=== PATIENT | female | born 1995 | race Caucasian/White ===

== ENCOUNTER 2022-09-30 03:40 | Inpatient (IN) ==
[2022-09-30] MEDS ORDERED: LIDOCAINE 1% LOCAL 20 ML VIAL INFIL PRN (04:37)
[2022-09-30] MEDS ORDERED: SODIUM CHLORIDE 0.9% 250 ML IV PRN (04:50)
[2022-09-30 05:02] LABS: Hematocrit (blood only) 36.6 % (34.1-44.9); Hemoglobin 12.3 g/dl (12.0-16.0); Mean Corpuscular Hemoglobin 28.5 pg (25.0-34.0); Mean Corpuscular Hgb Conc 33.6 g/dL (32.0-36.0); Mean Corpuscular Volume 84.7 fL (80.0-100.0); Mean Platelet Volume 9.8 fL (9.4-12.3); Platelet Count 245 K/uL (130-400); RDW Coefficient of Variation 13.7 % (11.5-14.5); RDW Standard Deviation 42.1 fL (36.4-46.3); Red Blood Count 4.32 M/uL (3.93-5.22); White Blood Count 11.25 K/ul (4.8-10.8)
--- NOTE | 2022-09-30 05:02 | Labor Progress Brief Note ---
Date of Service September 30, 2022 Assessment & Plan (1) premature rupture of membranes (PPROM) delivered, current hos pitalization: Plan: at 36 + week PPROM- grossly raptured at 02;00 FHR;CAT1 Ctx; Minimal VE: 3/80/-2 bedside sono; VT + GBS, antibx satrted BTMZ IM series discussed Pitocin augmentation after 4 hrs of SROM if no adequate ctx Results & Data ([facility]) Vital Signs (Past 12 Hours) Vital Signs Temp Pulse Resp BP 09/30/22 04:04 37.0 C 117 H 18 142/98 H 09/30/22 04:38 109 H 143/92 H 09/30/22 04:28 108 H 140/96 09/30/22 04:18 111 H 140/98 09/30/22 04:09 113 H 142/98 H 09/30/22 04:10 109 H 144/100 H 09/30/22 03:58 117 H 150/102 H
[2022-09-30] MEDS: PENICILLIN GK 6 MU in DEXTROSE 5% 250 ML IV STA (05:04)
[2022-09-30] MEDS: LACTATED RINGER'S 1,000 ML IV PRN (05:04)
[2022-09-30 05:21] LABS: Bilirubin,Total 0.3 mg/dl (0.2-1.0); Calcium 8.9 mg/dl (8.5-10.1); Creatinine Clr Calc Pharmacy 227.5 ml/min; Est GFR (African American) 146.8 ml/min; Est GFR (Non-African American) 126.7 ml/min; Globulin 3.2 gm/dl (2.5-4.0); Potassium 4.1 mmol/L (3.5-5.1); Total Protein 6.3 gm/dl (6.0-8.3)
[2022-09-30] MEDS: OXYTOCIN 30 UNITS/NSS 30 UNITS/500 ML BAG IV PRN ×2 (06:25→16:25)
[2022-09-30] MEDS: BETAMETH SOD PHOS/ACETATE IA 6 MG/ML IM STA (07:02)
[2022-09-30] MEDS: BETAMETH SOD PHOS/ACETATE IA 6 MG/ML ONE (07:57)
[2022-09-30] MEDS: PENICILLIN GK 3 MU in DEXTROSE 5% 100 ML IV PRN (09:14)
--- NOTE | 2022-09-30 10:49 | Labor Progress Brief Note ---
Date of Service September 30, 2022 Assessment & Plan (1) premature rupture of membranes (PPROM) delivered, current hos pitalization: Plan: Pt doing wel FHR; CAT1 ctx ; Poor tracing Pit 6mu VE; /-2 IUPC placed w/o difficulty Ctx are now 2-3min pt is agreeable to epidural Admission and Anticipated Discharge Date Admission Date: September 30, 2022 Results & Data ([facility]) Vital Signs (Past 12 Hours) Vital Signs Temp Pulse Resp BP Pulse Ox 09/30/22 07:00 36.6 C 18 09/30/22 04:04 37.0 C 117 H 18 142/98 H 09/30/22 10:43 95 H 100 09/30/22 10:38 100 H 100 09/30/22 10:33 91 H 99 09/30/22 10:14 96 H 144/91 H 09/30/22 09:59 90 139/107 H 09/30/22 09:46 86 130/65 09/30/22 09:23 93 H 135/71 09/30/22 08:59 97 H 148/89 H 09/30/22 08:53 18 09/30/22 08:53 36.4 C L 18 09/30/22 08:46 94 H 145/88 H 09/30/22 08:44 86 168/96 H 09/30/22 08:29 81 177/102 H 09/30/22 08:14 86 139/74 09/30/22 08:01 86 134/73 09/30/22 07:45 94 H 123/81 09/30/22 07:29 92 H 138/94 09/30/22 07:15 98 H 135/88 09/30/22 07:03 110 H 155/95 H 09/30/22 07:00 110 H 168/110 H 09/30/22 06:37 105 H 155/105 H 09/30/22 06:27 104 H 151/103 H 09/30/22 04:38 109 H 143/92 H 09/30/22 04:28 108 H 140/96 09/30/22 04:18 111 H 140/98 09/30/22 04:09 113 H 142/98 H 09/30/22 04:10 109 H 144/100 H 09/30/22 03:58 117 H 150/102 H
[2022-09-30] MEDS: BUPIVACAINE 0.25% PF 30 ML VIAL ONE (11:11)
[2022-09-30] MEDS: fentaNYL 2MCG/ML ROPIVACAINE 1.25MG/ML 100 ML BAG EPI ONE (11:13)
--- NOTE | 2022-09-30 11:17 | Anesthesiology Consultation ---
Date of Service September 30, 2022 Assessment & Plan Chart Review Chart Review: Acceptable Risk for Labor Epidural Consults Requested none History Height/Weight Height: 5 ft 11 in Weight: 145.15 kg Allergies Allergy/AdvReac Type Severity Reaction Status Date / Time No Known Allergies Allergy Unverified 09/30/22 04:24 Medications Home Medications Medication Instructions Recorded Confirmed Last Taken aspirin 81 mg chewable tablet 81 mg PO DAILY 09/30/22 09/30/22 09/29/22 vit no.95-ferrous 1 tab PO DAILY 09/30/22 09/30/22 09/29/22 fumarate 28 mg-folic acid 800 mcg tablet () Active Medications Generic Name Dose Route Start Last Admin Trade Name Freq PRN Reason Stop Dose Admin Lactated Ringer's 1,000 mls @ 125 mls/hr 09/30/22 04:37 09/30/22 11:06 Lr IV 10/02/22 04:36 125 mls/hr .Q8H PRN Administration L&D Protocol Protocol Penicillin G Potassium 3 mu/ 106 mls @ 100 mls/hr 09/30/22 07:37 09/30/22 09:14 Dextrose IV 10/10/22 07:36 100 mls/hr Q4H PRN Administration GBS(+) Until Delivery Oxytocin 30 units in 500 mls @ 6 mls/hr 09/30/22 05:02 09/30/22 08:08 Pitocin IV 10/02/22 05:01 0.36 units/hr .Q24H PRN 6 mls/hr Labor Induction/Augmentation Titration Protocol 0.36 UNITS/HR Past Surgical History Surgical History (Updated 09/30/22 @ 04:24 by Kathya Mckenna) [place] teeth extracted Social History Smoking Status: Never smoker Hx Alcohol Use: No Hx Substance Use: No Physical Exam Vital Signs Last Vital Signs Temp 36.6 C 09/30/22 10:47 Pulse 101 H 09/30/22 11:16 Resp 18 09/30/22 10:47 BP 133/80 09/30/22 11:16 Pulse Ox 97 09/30/22 11:13 Testing Laboratory Results 09/30/22 04:52 09/30/22 04:52 Blood Type A Positive 09/30/22 04:52 Antibody Screen NEGATIVE 09/30/22 04:52
[2022-09-30] MEDS ORDERED: ePHEDrine sulfate 50 MG/ML AMP IV PRN (11:18)
[2022-09-30] MEDS ORDERED: NALOXONE HCL 1 MG in SODIUM CHLORIDE 0.9% 1,000 ML IV PRN (11:18)
[2022-09-30] MEDS ORDERED: diphenhydrAMINE 50 MG/ML VIAL IV PRN (11:18)
[2022-09-30] MEDS ORDERED: fentaNYL 2MCG/ML ROPIVACAINE 1.25MG/ML 100 ML BAG EPI PRN (11:18)
[2022-09-30] MEDS ORDERED: NALOXONE HCL 0.4 MG/1 ML VIAL/CARP IV PRN (11:18)
[2022-09-30] MEDS ORDERED: NALBUPHINE HCL INJ 10 MG/ML AMP IV PRN (11:18)
[2022-09-30] MEDS ORDERED: ONDANSETRON INJ 2 MG/ML 2 ML VIAL IV PRN (11:18)
[2022-09-30] MEDS: LIDOCAINE 2%/EPINEPHRINE 1:200,000 20 ML PF ONE (11:36)
[2022-09-30] MEDS: fentaNYL citrate PF 100 MCG/2 ML VIAL ONE (11:36)
[2022-09-30] MEDS: SODIUM CHLORIDE 0.9% PF INJ 10 ML VIAL ONE (11:36)
[2022-09-30 14:50] VITALS: RESP 18
[2022-09-30] MEDS: miSOPROStoL 200 MCG TAB PR ONE (16:03)
[2022-09-30] MEDS: METHYLERGONOVINE MALEATE 0.2 MG/ML AMP ONE (16:04)
[2022-09-30] MEDS ORDERED: ACETAMINOPHEN 325 MG TAB PO PRN (16:09)
[2022-09-30] MEDS ORDERED: OXYTOCIN 30 UNITS/NSS 30 UNITS/500 ML BAG IV PRN (16:09)
[2022-09-30] MEDS ORDERED: HYDROCORTISONE ACETATE 25 MG SUPP PR PRN (16:09)
--- NOTE | 2022-09-30 16:19 | Delivery Summary ---
DATE OF SERVICE: 09/30/2022 DELIVERY NOTE: The patient delivered a live in left occiput anterior presentation. There was no nuchal cord. Infant was delivered and placed on mother's abdomen. Delayed cord clamp was perfor med. Placenta spontaneously delivered. Inspection of the placenta shows a normal placenta with 3-ve ssel cord. Inspection of the perineum shows a second-degree midline laceration, which was repaired with 2-0 Vicr yl in layers. Rectal exam post-repair showed good sphincter tone. Estimated blood loss was 450 mL. The patient is doing well. Good hemostasis. The patient is in [place] very. Job ID: [id number]
[2022-09-30] MEDS: ePHEDrine sulfate 50 MG/ML AMP ONE (16:24)
[2022-09-30] MEDS: METHYLERGONOVINE MALEATE 0.2 MG/ML AMP IM ONE (17:05)
[2022-09-30] MEDS: miSOPROStoL 200 MCG TAB ONE (17:05)
[2022-09-30] MEDS ORDERED: Nursing to Pharmacy Communication SCH (17:15)
--- NOTE | 2022-09-30 18:20 | Anesthesia Procedure Note ---
Date of Service September 30, 2022 Anesthesia Post Epidural Note Vital Signs Vital Signs: Temp Pulse Resp BP Pulse Ox 36.6 C 99 H 18 127/70 97 09/30/22 16:10 09/30/22 18:15 09/30/22 16:10 09/30/22 18:15 09/30/22 16:03 Pain Intensity Lower Abdomen: Pain Intensity: 0 Notes Mental Status: alert / awake / arousable Nausea / Vomiting: adequately controlled Pain: adequately controlled Airway Patency, RR, SpO2: stable & adequate BP & HR: stable & adequate Hydration State: stable & adequate Neuraxial Anesthesia: was administered and sensory block is resolving Anesthetic Complications: no major complications apparent and Pt Satisfied with anesthetic care Epidural: Removed without complications and With tip intact
[2022-09-30] MEDS: IBUPROFEN 600 MG TAB PO PRN (18:34)
[2022-09-30] MEDS: DIPHTHER/TETAN/PERTUS Vaccine (Tdap, Adol/Adult) 0.5mL IM ONE (18:46)
[2022-09-30] MEDS: DOCUSATE SODIUM 100 MG CAP PO SCH (22:31)
[2022-09-30] MEDS: BENZOCAINE 20% SPRY 85 APPLN/85 GM CAN EXT PRN (22:31)
[2022-10-01] MEDS ORDERED: BETAMETH SOD PHOS/ACETATE IA 6 MG/ML IM SCH (04:45)
[2022-10-01 06:33] LABS: Hematocrit (blood only) 33.7 % (34.1-44.9); Hemoglobin 11.1 g/dl (12.0-16.0); Mean Corpuscular Hemoglobin 28.3 pg (25.0-34.0); Mean Corpuscular Hgb Conc 32.9 g/dL (32.0-36.0); Mean Platelet Volume 9.7 fL (9.4-12.3); Platelet Count 227 K/uL (130-400); RDW Standard Deviation 43.1 fL (36.4-46.3); Red Blood Count 3.92 M/uL (3.93-5.22); White Blood Count 12.47 K/ul (4.8-10.8)
[2022-10-01] MEDS: PRENATAL VITAMIN 1 TAB PO SCH (07:50)
--- NOTE | 2022-10-01 09:39 | Obstetrical Progress Note ---
Date of Service October 01, 2022 Assessment & Plan Admission and Anticipated Discharge Date Admission Date: September 30, 2022 Subjective Patient is seen and examined. She feels well, no complaints. Ambulating without dizziness Voiding without difficulty Tolerating regular diet with out N&V Bleeding is minimal No fever/ chills/ CP/ SOB/ N&V/ Leg pain Breast feeding without problems Vital Signs Temp Pulse Resp BP Pulse Ox O2 Del Method 10/01/22 08:00 36.4 C L 82 18 128/87 Room Air 10/01/22 03:00 36.5 C 87 18 134/87 97 Room Air 09/30/22 23:28 36.8 C 100 H 18 136/86 97 Room Air Lab Results 09/30/22 09/30/22 09/30/22 Range/Units 04:52 04:52 04:52 WBC 11.25 H (4.8-10.8) K/ul RBC 4.32 (3.93-5.22) M/uL Hgb 12.3 (12.0-16.0) g/dl Hct 36.6 (34.1-44.9) % MCV 84.7 (80.0-100.0) fL MCH 28.5 (25.0-34.0) pg MCHC 33.6 (32.0-36.0) g/dL RDW Std Deviation 42.1 (36.4-46.3) fL RDW Coeff of Delfina 13.7 (11.5-14.5) % Plt Count 245 (130-400) K/uL MPV 9.8 (9.4-12.3) fL Sodium 137 (136-145) mmol/L Potassium 4.1 (3.5-5.1) mmol/L Chloride 106 (98-107) mmol/L Carbon Dioxide 22 (21-32) mmol/L Anion Gap 9 (3-11) BUN 12 (6-23) mg/dl Creatinine 0.60 (0.6-1.2) mg/dl Est Cr Clr Drug Dosing 227.5 ml/min Est GFR ( Amer) 146.8 ml/min Est GFR (Non-Af Amer) 126.7 ml/min BUN/Creatinine Ratio 20.0 (10-20) Glucose 95 (70-99(Fasting)) mg/dl Calcium 8.9 (8.5-10.1) mg/dl Total Bilirubin 0.3 (0.2-1.0) mg/dl AST 14 (13-39) U/L ALT 13 (7-52) U/L Alkaline Phosphatase 123 H (34-104) U/L Total Protein 6.3 (6.0-8.3) gm/dl Albumin 3.1 L (3.4-5.0) gm/dl Globulin 3.2 (2.5-4.0) gm/dl Albumin/Globulin Ratio 1.0 (0.9-2) SARS-CoV-2, RNA, NAAT (NEGATIVE) Blood Type A Positive Antibody Screen NEGATIVE Crossmatch See Detail 09/30/22 10/01/22 Range/Units 04:52 06:13 WBC 12.47 H (4.8-10.8) K/ul RBC 3.92 L (3.93-5.22) M/uL Hgb 11.1 L (12.0-16.0) g/dl Hct 33.7 L (34.1-44.9) % MCV 86.0 (80.0-100.0) fL MCH 28.3 (25.0-34.0) pg MCHC 32.9 (32.0-36.0) g/dL RDW Std Deviation 43.1 (36.4-46.3) fL RDW Coeff of Delfina 14.0 (11.5-14.5) % Plt Count 227 (130-400) K/uL MPV 9.7 (9.4-12.3) fL Sodium (136-145) mmol/L Potassium (3.5-5.1) mmol/L Chloride (98-107) mmol/L Carbon Dioxide (21-32) mmol/L Anion Gap (3-11) BUN (6-23) mg/dl Creatinine (0.6-1.2) mg/dl Est Cr Clr Drug Dosing ml/min Est GFR ( Amer) ml/min Est GFR (Non-Af Amer) ml/min BUN/Creatinine Ratio (10-20) Glucose (70-99(Fasting)) mg/dl Calcium (8.5-10.1) mg/dl Total Bilirubin (0.2-1.0) mg/dl AST (13-39) U/L ALT (7-52) U/L Alkaline Phosphatase (34-104) U/L Total Protein (6.0-8.3) gm/dl Albumin (3.4-5.0) gm/dl Globulin (2.5-4.0) gm/dl Albumin/Globulin Ratio (0.9-2) SARS-CoV-2, RNA, NAAT NEGATIVE (NEGATIVE) Blood Type Antibody Screen Crossmatch PE: General: Alert, orientedx3, NAD Abd: soft, NT, fundus firm, below Umbilicus Perineum intact, Lochia rubra minimal Ext; NT, no edema AP: 26 yo s/p , ppd# 1 VSS Afebrile doing well Continue routine care All questions were answered D/C home tomorrow Results & Data ([facility]) Vital Signs (Past 12 Hours) Vital Signs Temp Pulse Resp BP Pulse Ox O2 Del Method 10/01/22 08:00 36.4 C L 82 18 128/87 Room Air 10/01/22 03:00 36.5 C 87 18 134/87 97 Room Air 09/30/22 23:28 36.8 C 100 H 18 136/86 97 Room Air
[2022-10-01] MEDS: bisacodyL 5 MG TABEC PO SCH (20:05)
[2022-10-02 07:08] LABS: Hematocrit (blood only) 32.2 % (34.1-44.9); Hemoglobin 10.6 g/dl (12.0-16.0)
[2022-10-02] MEDS ORDERED: bisacodyL 10 MG SUPP PR PRN (08:00)
[2022-10-02 09:23] VITALS: BP 122/83; PULSE 88; TEMP 98.1; O2SAT 98
--- NOTE | 2022-10-02 13:09 | Obstetrical Progress Note ---
Date of Service October 02, 2022 Assessment & Plan (1) Normal course: pt doing well No complaints disch home with instructions Subjective Ambulation: ambulating normally Voiding: no voiding problems Passing Gas:: Yes Diet Tolerance:: regular diet Lochia:: Small Feeding Type:: breast feeding Review of Systems All systems reviewed & are unremarkable except as noted in HPI & below Physical Exam Constitutional WD/WN, vitals as above well developed and well nourished Eyes PERRL, conjunctivae normal, anicteric sclerae Neck trachea midline, no thyromegaly Respiratory normal respiratory effort, lungs clear to auscultation Auscultation: no crackles, no rales and no wheezes Cardiovascular RRR, no murmur, no edema Gastrointestinal (Abdomen) normal bowel sounds, soft, nontender, no hepatosplenomegaly Uterus is below umbilicus Musculoskeletal no cyanosis or clubbing, extremities motor strength 5/5 Skin no rashes, warm and dry Neurologic patellar DTR's 2+ bilat, sensation intact Psychiatric A+Ox3, euthymic affect Genitourinary normal external appearance Results & Data ([facility]) Vital Signs (Past 12 Hours) Vital Signs Temp Pulse Resp BP Pulse Ox O2 Del Method 10/02/22 07:30 36.7 C 88 18 122/83 98 Room Air
== END 2022-10-02 14:41 | disposition home or self-care (01) ==
LOC: OPB 03:40 → 4S1 03:51 → 4E2 20:27

== ENCOUNTER 2025-07-19 07:41 | Inpatient (IN) ==
[2025-07-19] MEDS ORDERED: CALCIUM CARBONATE 500 MG CHEWABLE TAB PO PRN (08:14)
[2025-07-19] MEDS: LACTATED RINGER'S 1,000 ML IV PRN (08:20)
--- NOTE | 2025-07-19 08:41 | History & Physical Report ---
Date of Service July 19, 2025 Assessment & Plan (1) Active labor at term: Plan: 29-year-old at 39 weeks and 6 days of gestation presenting in active labor requesting epidural for pain, Initial blood pressure slight elevated, asymptomatic, will add labs, heart rate reassuring, GBS positive, Plan to admit, labs, start IV penicillin, epidural for pain, continue to monitor, All questions were answered. (2) Positive GBS test: (3) Obesity affecting in third trimester, antepartum: Admission and Anticipated Discharge Date Admission Date: July 19, 2025 History of Present Illness Primary Care Provider: Iam Arciniega MD -0-0-1 at 39 weeks and 6 days of gestation who woke up this morning around 5 AM with contractions, they have been every 8 to 10 minutes and they got more closer and regular. She presented to labor and delivery in active labor and ask ing for epidural. She rates her pain 6 out of 10 while smiling. She denies leakage of fluid or vaginal bleeding. She reports good movements. She has no other complaints. Her has been complicated by, 1. Class III obesity, growth was at 66 percentile on June 24, 2. GBS positive for 3. History of insulin resistance, she was on metformin before and stopped with the knowledge of . 4. History of labor and delivery at 36 weeks and 4 days of gestation last time, EFW was larger for gestational age Allergies Allergy/AdvReac Type Severity Reaction Status Date / Time No Known Allergies Allergy Unverified 09/30/22 04:24 Home Medications Medication Instructions Recorded Confirmed Type aspirin 81 mg chewable tablet 81 mg PO DAILY 09/30/22 07/19/25 History vit no.95-ferrous 1 tab PO DAILY 09/30/22 07/19/25 History fumarate 28 mg-folic acid 800 mcg tablet () Patient History Surgical History [place] teeth extracted Social History Smoking Status: Never smoker Second Hand Exposure: No; Hx Alcohol Use: No Hx Substance Use: No Preferred Language: Irish Communication Ability: Effective Colon And Rectal Surgeon Required: No Beliefs That Will Affect Care: None marital status: Current Living Situation: Family Other Information That Helps Us Care for You: No Feels Safe at Home: Yes Safety Concerns: Feels Safe At This Time Assistive Devices: Contacts and Glasses [employer] History no history of STDs, no history of chlamydia, gonorrhea, herpes Review of Systems as per Subjective / HPI Physical Exam Constitutional: WD/WN, vitals as above well developed, well nourished and comfortable Genitourinary: normal external appearance OB Exam Abdomen: + vertex ( confirmed with ultrasound) Manual OB Exam: + cervical dilation 6 cm, + cervical effacement 80% and + station -1 ( bulging bag) OB Exam Monitor Tracing: + category I and + category II bedside ultrasound done by myself confirmed vertex presentation, heart rate, breathing and movements Results & Data Vital Signs (Past 12 Hours) Vital Signs Temp Pulse Resp BP 07/19/25 08:04 98 H 141/95 H 07/19/25 07:58 36.6 C 16 (3) Obesity affecting in third trimester, antepartum Obesity type affecting : other obesity Qualified Code(s): O99.213 - Obesity complicating , third trimester; E66.89 - Other obesity not elsewhere classified
[2025-07-19] MEDS: PENICILLIN GK 6 MU in DEXTROSE 5% 250 ML IV STA (08:53)
[2025-07-19 09:18] LABS: Hematocrit (blood only) 38.2 % (37.0-47.0); Hemoglobin 13.0 g/dl (12.0-16.0); Mean Corpuscular Hemoglobin 28.9 pg (25.0-34.0); Mean Corpuscular Volume 84.9 fL (80.0-100.0); Platelet Count 282 K/uL (130-400); RDW Standard Deviation 42.4 fL (36.4-46.3); Red Blood Count 4.50 M/uL (4.20-5.40); White Blood Count 10.11 K/ul (4.8-10.8)
[2025-07-19] MEDS ORDERED: SODIUM CHLORIDE 0.9% PF INJ 10 ML VIAL EPI PRN (09:18)
[2025-07-19] MEDS ORDERED: NALOXONE HCL 0.4 MG/1 ML VIAL/CARP IV PRN (09:18)
[2025-07-19] MEDS ORDERED: diphenhydrAMINE 50 MG/ML VIAL IV PRN (09:18)
[2025-07-19] MEDS ORDERED: ROPIVACAINE 0.5% PF 5 MG/ML 20 ML VIAL EPI PRN (09:18)
[2025-07-19] MEDS ORDERED: NALBUPHINE HCL INJ 10 MG/ML AMP IV PRN (09:18)
[2025-07-19] MEDS ORDERED: NALOXONE HCL 1 MG in SODIUM CHLORIDE 0.9% 1,000 ML IV PRN (09:18)
[2025-07-19] MEDS ORDERED: LIDOCAINE 2% MPF LOCAL 5 ML VIAL EPI PRN (09:18)
[2025-07-19 09:21] LABS: Albumin Level 3.3 gm/dl (3.4-5.0); Anion Gap 9.0 (3-11); Bilirubin,Total 0.3 mg/dl (0.2-1.0); Calcium 8.9 mg/dl (8.6-10.3); Carbon Dioxide 23.0 mmol/L (21-32); Chloride 105.0 mmol/L (98-107); Potassium 3.9 mmol/L (3.5-5.1); Sodium 137.0 mmol/L (136-145)
[2025-07-19 09:27] LABS: Alanine Aminotransferase 14.0 U/L (7-52); Albumin Globulin Ratio 1.0 (0.9-2); Alkaline Phosphatase 126.0 U/L (34-104); Blood Urea Nitrogen 10.0 mg/dl (6-23); Creatinine Clr Calc Pharmacy 226.7 ml/min; Globulin 3.4 gm/dl (2.5-4.0); Glucose 105.0 mg/dl (70-99(Fasting)); Total Protein 6.7 gm/dl (6.0-8.3)
--- NOTE | 2025-07-19 09:50 | Anesthesiology Consultation ---
Date of Service July 19, 2025 Assessment & Plan (1) Encounter for pre-operative examination: Chart Review Chart Review: Patient NOT seen in Pre Admission Testing and Acceptable Risk for Labor Epidural Consults Requested none History Height/Weight Height: 5 ft 10 in Weight: 141.521 kg Allergies Allergy/AdvReac Type Severity Reaction Status Date / Time No Known Allergies Allergy Unverified 09/30/22 04:24 Medications Home Medications Medication Instructions Recorded Confirmed Last Taken aspirin 81 mg chewable tablet 81 mg PO DAILY 09/30/22 07/19/25 07/17/25 vit no.95-ferrous 1 tab PO DAILY 09/30/22 07/19/25 07/17/25 fumarate 28 mg-folic acid 800 mcg tablet () Active Medications Generic Name Dose Route Start Last Admin Trade Name Freq PRN Reason Stop Dose Admin Lactated Ringer's 1,000 mls @ 150 mls/hr 07/19/25 08:14 07/19/25 09:19 Lr IV 07/21/25 08:13 150 mls/hr .[id number] PRN Administration L&D Protocol Protocol NPO Date Last Intake of Fluids: 07/19/25 Time Last Intake of Fluids: 09:00 Date Last Intake of Solids: 07/19/25 Time Last Intake of Solids: 07:00 Past Medical History Medical History (Updated 07/19/25 @ 09:50 by Diego Pickens MD) Encounter for pre-operative examination Obesity affecting in third trimester, antepartum Exercise / Class Metabolic Activity II 4-5 Yardwork/Stairs/Walk up hill Past Surgical History Surgical History [place] teeth extracted Past Anesthesia History No Hx of Anesthesia Complications and No Family Hx of Anesthesia Complications History of PONV No Hx of PONV and No Hx of Motion Sickness Social History Smoking Status: Never smoker Do You Dip or Chew Tobacco: No Hx Alcohol Use: No Hx Substance Use: No Physical Exam Vital Signs Last Vital Signs Temp 36.6 C 07/19/25 07:58 Pulse 92 H 07/19/25 09:15 Resp 16 07/19/25 07:58 BP 141/95 H 07/19/25 08:04 Pulse Ox 97 07/19/25 09:15 Testing Laboratory Results 07/19/25 08:39
[2025-07-19] MEDS: LIDOCAINE 2%/EPINEPHRINE 1:200,000 20 ML PF EPI STA (09:53)
[2025-07-19] MEDS: BUPIVACAINE 0.25% PF 30 ML VIAL EPI PRN (09:54)
[2025-07-19] MEDS: fentANYL 2 MCG/ML BUPIVacaine 0.125%-NSS 100ML BAG EPI PRN (10:02)
[2025-07-19] MEDS: ONDANSETRON INJ 2 MG/ML 2 ML VIAL IV PRN (10:42)
[2025-07-19] MEDS: BUPIVACAINE 0.25% PF 30 ML VIAL ONE (10:48)
[2025-07-19] MEDS: SODIUM CHLORIDE 0.9% PF INJ 10 ML VIAL ONE (10:48)
[2025-07-19] MEDS: LIDOCAINE 2%/EPINEPHRINE 1:200,000 20 ML PF ONE (10:48)
[2025-07-19] MEDS: BUPIVACAINE 0.25% PF 30 ML VIAL EPI STA (10:48)
[2025-07-19] MEDS: SODIUM CHLORIDE 0.9% PF INJ 10 ML VIAL EPI STA (10:48)
[2025-07-19] MEDS: fentANYL 2 MCG/ML BUPIVacaine 0.125%-NSS 100ML BAG ONE (10:48)
--- NOTE | 2025-07-19 11:16 | Obstetrical Progress Note ---
Date of Service July 19, 2025 Assessment & Plan Admission and Anticipated Discharge Date Admission Date: July 19, 2025 Subjective Patient has been comfortable, received epidural for pain 1st dose of PCN was completed FHR had been categ I Had short lasting 2 decels with spontaneous recovery VE: 7-8 cm/ 90%/-1, touched scalp and FHR had acceleration with moderate variability, head moved up, ballotable, amniotic bag intact Will continue to monitor and hold on AROM until 2nd dose of PCN would be started Results & Data Vital Signs (Past 12 Hours) Vital Signs Temp Pulse Resp BP Pulse Ox 07/19/25 11:11 83 71 L 07/19/25 11:10 80 100 07/19/25 11:05 78 99 07/19/25 11:04 78 111/63 07/19/25 11:00 73 98 07/19/25 10:55 100 07/19/25 10:55 88 07/19/25 10:55 97 H 87 L 07/19/25 10:50 79 99 07/19/25 10:49 96 H 116/65 07/19/25 10:45 88 97 07/19/25 10:40 97 07/19/25 10:40 76 07/19/25 10:40 73 103/56 L 07/19/25 10:35 100 07/19/25 10:35 83 07/19/25 10:35 81 110/57 L 07/19/25 10:30 87 100 07/19/25 10:25 111 H 98 07/19/25 10:24 96 H 107/55 L 07/19/25 10:20 108 H 99 07/19/25 10:19 105 H 109/53 L 07/19/25 10:15 106 H 99 07/19/25 10:14 103 H 109/55 L 07/19/25 10:10 100 H 100 07/19/25 10:08 114 H 108/57 L 07/19/25 10:05 100 07/19/25 10:05 110 H 07/19/25 10:05 104 H 109/55 L 07/19/25 10:03 106 H 123/58 L 07/19/25 10:01 103 H 127/60 07/19/25 10:00 100 H 98 07/19/25 09:55 106 H 98 07/19/25 09:50 93 H 99 07/19/25 09:47 99 H 142/89 H 07/19/25 09:45 97 H 99 07/19/25 09:40 102 H 99 07/19/25 09:35 89 99 07/19/25 09:30 93 H 99 07/19/25 09:25 93 H 100 07/19/25 09:20 96 H 100 07/19/25 09:15 92 H 97 07/19/25 09:10 83 98 07/19/25 08:04 98 H 141/95 H 07/19/25 07:58 36.6 C 16
[2025-07-19] MEDS: PENICILLIN GK 3 MU in DEXTROSE 5% 100 ML IV PRN (12:21)
--- NOTE | 2025-07-19 13:29 | Obstetrical Progress Note ---
Date of Service July 19, 2025 Assessment & Plan Admission and Anticipated Discharge Date Admission Date: July 19, 2025 Subjective 2nd dose of PCN is in Patient feels pain in vagina VE: 8/ 80%/ -1, large bag, AROM'ed light meconium FHR categ I Ctxs q 4-5 min Continue to monitor closely Augment with Oxytocin Results & Data Vital Signs (Past 12 Hours) Vital Signs Temp Pulse Resp BP Pulse Ox 07/19/25 13:25 89 98 07/19/25 13:20 100 07/19/25 13:20 97 H 07/19/25 13:20 86 138/83 07/19/25 13:19 102 H 93 07/19/25 13:15 82 98 07/19/25 13:10 78 97 07/19/25 13:05 81 96 07/19/25 13:04 75 123/74 07/19/25 13:00 80 20 98 07/19/25 12:55 78 99 07/19/25 12:50 76 99 07/19/25 12:49 71 128/71 07/19/25 12:45 76 97 07/19/25 12:40 78 98 07/19/25 12:35 80 99 07/19/25 12:34 96 H 135/80 07/19/25 12:30 73 16 96 07/19/25 12:25 75 95 07/19/25 12:20 96 07/19/25 12:20 89 07/19/25 12:20 77 122/74 07/19/25 12:15 95 07/19/25 12:15 83 07/19/25 12:15 80 93 07/19/25 12:10 77 100 07/19/25 12:09 78 93 07/19/25 12:05 90 98 07/19/25 12:02 86 90 07/19/25 12:00 91 H 16 100 07/19/25 11:55 76 97 07/19/25 11:50 79 99 07/19/25 11:49 85 96/51 L 07/19/25 11:45 77 99 07/19/25 11:40 87 99 07/19/25 11:35 86 98 07/19/25 11:34 80 96/55 L 07/19/25 11:30 86 16 99 07/19/25 11:25 80 99 07/19/25 11:20 95 H 99 07/19/25 11:19 75 106/61 07/19/25 11:15 83 98 07/19/25 11:11 83 71 L 07/19/25 11:10 80 100 07/19/25 11:05 78 99 07/19/25 11:04 78 111/63 07/19/25 11:00 36.7 C 73 98 07/19/25 10:55 100 07/19/25 10:55 88 07/19/25 10:55 97 H 87 L 07/19/25 10:50 79 99 07/19/25 10:49 96 H 116/65 07/19/25 10:45 88 97 07/19/25 10:40 97 07/19/25 10:40 76 07/19/25 10:40 73 103/56 L 07/19/25 10:35 100 07/19/25 10:35 83 07/19/25 10:35 81 110/57 L 07/19/25 10:30 87 100 07/19/25 10:25 111 H 98 07/19/25 10:24 96 H 107/55 L 07/19/25 10:20 108 H 99 07/19/25 10:19 105 H 109/53 L 07/19/25 10:15 106 H 99 07/19/25 10:14 103 H 109/55 L 07/19/25 10:10 100 H 100 07/19/25 10:08 114 H 108/57 L 07/19/25 10:05 100 07/19/25 10:05 110 H 07/19/25 10:05 104 H 109/55 L 07/19/25 10:03 106 H 123/58 L 07/19/25 10:01 103 H 127/60 07/19/25 10:00 100 H 98 07/19/25 09:55 106 H 98 07/19/25 09:50 93 H 99 07/19/25 09:47 99 H 142/89 H 07/19/25 09:45 97 H 99 07/19/25 09:40 102 H 99 07/19/25 09:35 89 99 07/19/25 09:30 93 H 99 07/19/25 09:25 93 H 100 07/19/25 09:20 96 H 100 07/19/25 09:15 92 H 97 07/19/25 09:10 83 98 07/19/25 08:04 98 H 141/95 H 07/19/25 07:58 36.6 C 16
[2025-07-19] MEDS ORDERED: OXYTOCIN 30 UNITS/NSS 30 UNITS/500 ML BAG IV PRN ×2 (13:35→14:14)
[2025-07-19] MEDS: OXYTOCIN 30 UNITS/NSS 30 UNITS/500 ML BAG IV PRN (14:00)
[2025-07-19] MEDS ORDERED: DIPHTHER/TETAN/PERTUS Vaccine (Tdap, Adol/Adult) 0.5mL IM ONE (14:14)
[2025-07-19] MEDS ORDERED: HYDROCORTISONE ACETATE 25 MG SUPP PR PRN (14:14)
[2025-07-19] MEDS ORDERED: ACETAMINOPHEN 325 MG TAB PO PRN (14:14)
[2025-07-19] MEDS ORDERED: MEASLES, MUMPS & RUBELLA VIRUS VACCINE (MMR) 0.5ML VIAL SQ ONE (14:14)
--- NOTE | 2025-07-19 14:18 | Delivery Summary ---
Vaginal Delivery Summary Date of Service July 19, 2025 Vaginal Delivery Summary Patient was found to be fully dilated and desired to push. She pushed With 3 contractions and delivered the head and then unable to deliver shoulders with minimal traction. suprapubic pressure was applied by her nurse and then I was able to deliver posterior/right shoulder arm without difficulty and then hold it was elevated easily Within seconds. The baby was handed off to the mother. The cord was clampedx2 and cut. The vagina and perineum were checked and found to have Small second-degree perineal and superficial first-degree periurethral lacerations. The vaginal mucosa was repaired with 2/0 vicryl and skin on subcuticular fashion. Ureteral region was repaired with 3-0 Vicryl on SH needle while keeping catheter in the urethra. All repairs were hemostatic. The placenta was delivered spontaneously as intact and complete. The uterus was explored and found to be empty. QBL was 385 ml. The fundus was firm. The baby was a viable Female , Apgars 8/9, the weight is pending The mother and the baby tolerated the procedure well. No complications happened and I was present during whole procedure.
--- NOTE | 2025-07-19 14:25 | Anesthesia Procedure Note ---
Date of Service July 19, 2025 Anesthesia Post Epidural Note Vital Signs Vital Signs: Temp Pulse Resp BP Pulse Ox 36.7 C 93 H 16 137/86 84 L 07/19/25 11:00 07/19/25 14:20 07/19/25 13:45 07/19/25 14:20 07/19/25 13:45 Pain Intensity Abdomen: Pain Intensity: 8 Notes Mental Status: alert / awake / arousable and participated in evaluation Patient Amnestic to Procedure: No Nausea / Vomiting: adequately controlled Pain: adequately controlled Airway Patency, RR, SpO2: stable & adequate BP & HR: stable & adequate Hydration State: stable & adequate Neuraxial Anesthesia: was administered and sensory block is resolving Anesthetic Complications: no major complications apparent and Pt Satisfied with anesthetic care Epidural: Removed without complications and With tip intact
[2025-07-19] MEDS: LIDOCAINE 1% LOCAL 20 ML VIAL INFIL PRN (14:30)
[2025-07-19] MEDS: BENZOCAINE 20% SPRY 85 APPLN/85 GM CAN EXT PRN (14:57)
[2025-07-19] MEDS: IBUPROFEN 600 MG TAB PO PRN (14:57)
[2025-07-19] MEDS: DOCUSATE SODIUM 100 MG CAP PO SCH (20:12)
[2025-07-20] MEDS: ACETAMINOPHEN 325 MG TAB PO PRN (00:01)
[2025-07-20 06:16] LABS: Hematocrit (blood only) 31.9 % (37.0-47.0); Hemoglobin 10.6 g/dl (12.0-16.0); Mean Corpuscular Hemoglobin 28.7 pg (25.0-34.0); Mean Corpuscular Volume 86.4 fL (80.0-100.0); Platelet Count 249 K/uL (130-400); RDW Standard Deviation 44.0 fL (36.4-46.3); Red Blood Count 3.69 M/uL (4.20-5.40); White Blood Count 10.84 K/ul (4.8-10.8)
[2025-07-20 07:52] VITALS: RESP 16
[2025-07-20] MEDS: FERROUS SULFATE 325 MG TAB PO SCH (07:54)
[2025-07-20] MEDS: PRENATAL VITAMIN 1 TAB PO SCH (07:54)
--- NOTE | 2025-07-20 09:47 | Obstetrical Progress Note ---
Date of Service July 20, 2025 Subjective Ambulation: ambulating normally Voiding: no voiding problems Passing Gas:: Yes Diet Tolerance:: regular diet Lochia:: Small Feeding Type:: breast feeding Current Pain Level(1-10): 0 doing well Physical Exam Constitutional WD/WN, vitals as above Gastrointestinal (Abdomen) Inspection/Auscultation: abdomen normal to inspection Musculoskeletal Extremities: extremities normal to inspection Skin no rashes, warm and dry Neurologic patellar DTR's 2+ bilat, sensation intact Psychiatric A+Ox3, euthymic affect Results & Data Vital Signs (Past 12 Hours) Vital Signs Temp Pulse Resp BP Pulse Ox O2 Del Method 07/20/25 07:50 36.5 C 95 H 16 118/80 96 Room Air 07/20/25 04:00 36.6 C 86 19 107/71 96 Room Air 07/19/25 23:31 36.6 C 90 18 103/71 96 Room Air Laboratory Results Laboratory Results - last 72 hr 07/19/25 07/20/25 08:39 05:50 WBC 10.11 10.84 H RBC 4.50 3.69 L Hgb 13.0 10.6 L Hct 38.2 31.9 L MCV 84.9 86.4 MCH 28.9 28.7 MCHC 34.0 33.2 RDW Std Deviation 42.4 44.0 RDW Coeff of Delfina 13.6 13.8 Plt Count 282 249 MPV 9.6 9.7 Sodium 137 Potassium 3.9 Chloride 105 Carbon Dioxide 23 Anion Gap 9 BUN 10 Creatinine 0.57 L Est Cr Clr Drug Dosing 226.7 eGFR 126.87 BUN/Creatinine Ratio 17.5 Glucose 105 H Calcium 8.9 Total Bilirubin 0.3 AST 14 ALT 14 Alkaline Phosphatase 126 H Total Protein 6.7 Albumin 3.3 L Globulin 3.4 Albumin/Globulin Ratio 1.0 Treponema pallidum Ab Negative Blood Type A Positive Antibody Screen NEGATIVE
[2025-07-20 12:19] VITALS: BP 128/90; PULSE 89; TEMP 98.2; O2SAT 97
== END 2025-07-20 15:50 | disposition home or self-care (01) | DRG 806 ==
LOC: OPB 07:41 → 4S1 07:44 → 4E2 17:09